=== PATIENT | male | born 1960 | race Caucasian/White ===

== ENCOUNTER → 2017-10-26 | Outpatient (CLI) | payer BC ==
--- NOTE | 2017-10-26 13:56 | NM ---
EXAMINATION TYPE: NM stress cardiolite complete DATE OF EXAM: 10/26/2017 COMPARISON: NONE HISTORY: Precordial chest pain and abnormal EKG TECHNIQUE: After the intravenous administration of 10.5 mCi Tc 99m Sestamibi - Rest images obtained 50 minutes post injection. The patient exercised using a FIDEL protocol and 1 minute prior to peak exercise was injected with 26.2 mCi Tc 99m Sestamibi - Stress images obtained 8 minutes post injectio n. FINDINGS: Targeted heart rate was achieved during performance of the study. Review of stress and rest SPECT marshal ges demonstrates no distinct perfusion abnormality. Gated analysis shows normal wall motion with an estimated left ventricular ejection fraction of 63 %. IMPRESSION: No scintigraphic evidence for reversible ischemia
--- NOTE | 2017-10-26 19:30 | EST ---
EXERCISE STRESS AGE: 57 SEX: Male. HT: 5 feet 10 inches WT: 165 PROTOCOL: Jeremiah Cardiolite STAGE: II DURATION OF EXERCISE: 8:11 HEART RATE REST: 82 BLOOD PRESSURE REST: 152/91 MAXIMUM HEART RATE ACHIEVED: 143 MAXIMUM BLOOD PRESSURE: 199/101 85% MPHR: 139 100% MPHR: 163 METS: 9.9 INDICATIONS: Chest pain - anxiety. CLINICAL INFORMATION: This is a 57-year-old male patient who underwent a stress test for chest discomfort, referred by Dr. Beckford. Baseline heart rate 82 beats per minute. Baseline blood pressure 152/91 mmHg. Baseline 12-lead ECG showed normal sinus rhythm with early repolarization abnormality in the inferolateral leads. Patient exercised on a Jeremiah protocol for 8 minutes 11 seconds, achieving a peak heart rate of 143 beats per minute, hypertensive response to exercise (diastolic). There was no ECG evidence of ischemia. No arrhythmia was noted. Nuclear portion of the stress test will be reported separately. MMODL / IJN: [id number] /
== END | disposition home or self-care (01) ==
LOC: RADNMMAIN 10:37
PROVIDERS: ATTEND Internal Medicine
DX: R07.9 Chest pain, unspecified (principal)
CPT/HCPCS: 93017; 78452; A9500

== ENCOUNTER → 2024-02-01 | Outpatient (CLI) | payer BC ==
--- NOTE | 2024-02-01 13:45 | XR ---
EXAMINATION TYPE: XR chest 2V DATE OF EXAM: 02/01/2024 COMPARISON: 03/18/2012 INDICATION: Short of breath TECHNIQUE: Frontal and lateral views of the chest are obtained. FINDINGS: The heart size is normal. The pulmonary vasculature is normal. The lungs are clear. IMPRESSION: 1. No acute pulmonary process.
== END | disposition home or self-care (01) ==
LOC: RADXRMAIN 12:51
PROVIDERS: ATTEND Internal Medicine
DX: R06.02 Shortness of breath (principal)
CPT/HCPCS: 71046